=== PATIENT | male | born 1940 | race Caucasian/White ===

== ENCOUNTER → 2018-07-02 08:03 | Outpatient (CLI) | payer MEDICARE, OTHER, SELFPAY ==
--- NOTE | 2018-07-02 08:18 | PCM.CR.ITP ---
General Information - General Information Admitting Diagnosis: S/P TAVR - Education/Goals Barriers to Learning: None Individual Counseling: Initial Assessment: Abnormal Cholesterol Levels, Family History of Heart Disease (under 65 years) Cardiac Rehabilitation Goals: 1. Maintain the individual as the primary focus of care. 2. To improve the patient's quality of life. 3. Identification of cardiac risk factors and provide cardiac risk factor management. 4. Enhance the psychosocial status of the patient. 5. Reconditioning enough to allow the patient to resume customary activities. 6. Control symptoms of cardiac disease Scale for measuring improvement of personal goals: Enter appropriate number in Comments. 2 = Unchanged. 3 = Slightly Better. 4 = Moderate Improvement. 5 = Met my Goal Personal Goals: Initial Assessment: Improve energy level, Participate in home exercise program, Get back to work, or to resume activities faster, Improve muscle strength and endurance, Improve diet and eating habits (eat healthier), Control risk factors (learn risk factor modification) Exercise - Initial Assessment - Visit Date of Eval: 07/02/18 - Stages of Change Stages of Change:: Action - Physician Prescribed Exercise Modalities: Treadmill, Biodyne, Rower, Airdyne, NuStep, SciFit Frequency (days/week): 3x/week for 12 weeks [36 sessions] Intensity: Rating of perceived exertion (Sajan Scale) - Hypertension Do any of the following apply?: No - Intervention Home Exercise/Activity Goal:: Moderate Exercise 30 min/day x 5 days/wk - Education Goals:: Warm-up, RPE SAJAN Scale, S/S, Safe Exercise, Self-Monitoring - Exercise Program Goals Exercise Program Goals: Aerobic Activity >30 min Nutrition - Initial Assessment - Program Goals Nutrition Program Goals: LDL <70. Total Cholesterol <200. HDL >45. Triglycerides <150. HgbA1C <7%. BMI <25 - Visit Date of Assessment:: 07/02/18 - Stages of Change Stages of Change:: Action - Lipids Total Cholesterol (mg/dL) Goal = less than 200 mg/dL: 150 HDL Cholesterol (mg/dL) Goal = less than 45 mg/dL: 45 LDL Cholesterol (mg/dL) Goal = less than 70 mg/dL: 156 Triglycerides (mg/dL) Goal = less than 150 mg/dL: 120 - Diabetes Diabetes:: No - Weight Management Height: 5 ft 5 in Weight:: 154 lb Body Fat %:: 25.63 - Intervention Referral to dietitian:: Yes - Pt request Referral to Diabetic Clinic:: No Will attend diet classes:: Yes - Education Gave educational materials for:: Healthy eating Tobacco - Initial Assessment - Program Goals Tobacco Program Goals: Complete smoking cessation. Attend education classes. Improve Knowledge Test score - Stage of Change Stages of Change:: Maintenance - Learning Barriers Learning Barriers: Ready to Learn - Family Support Do you have family support?: Yes - Tobacco Use Tobacco Use: Non-smoker Do you use smokeless tobacco?: No - Intervention Smoking Cessation Referral:: No Individual Education/Counseling:: No Education Schedule Given:: Yes - Education Gave educational material for:: Tobacco triggers, Coronary artery disease, Risk factors, Sexuality, Medical compliance, Cardiac A&P, Angina signs & symptoms Psychosocial - Initial Assess - Target Goals Target Goals: Assess presence or absence of depression. Using a valid screening tool, maximizes coping skills. Positive support system - Stages of Change Stages of Change:: Action - Psychosocial Test Tool Used:: HANDS Depression Questionnaire Self-reported stress:: no Total Mood Screening Score:: 2 Self-Efficacy Score:: 9 - Intervention PS - Interventions: Yes Attend Stress Management Classes, Yes Uses Stress Management Skills, No Referral to Mental Health, No Referral to [facility] Case Management, No Referral to Physician - Education Gave educational materials for:: Coping techniques, Signs & symptoms of depression, Stress management, Relaxation techniques - Patient/Program Goal Preventative Medication(s):: Aspirin, OBIE inhibitor, Clopidogrel - Assistive Devices Assistive Devices:: None Fall Risk Assessed:: Yes Patient Health Questionnaire Initial Assessment 1. Little interest or pleasure in doing things: Not at all 2. Feeling down, depressed, or hopeless: Not at all 3. Trouble falling or staying asleep, or sleeping too much: Not at all 4. Feeling tired or having little energy: Several days 5. Poor appetite or overeating: Not at all 6. Feeling bad about yourself -- or that you are a failure or have let yourself or your family down: Not at all 7. Trouble concentrating on things, such as reading the newspaper or watching television: Not at all 8. Moving or speaking so slowly that other people could have noticed. Or the opposite - being so fidgety or restless that you have been moving around a lot more than usual: Several days 9. Thoughts that you would be better off , or of hurting yourself in some way: Not at all How difficult have these problems made it for you to do your work, take care of things at home, or get along with other people?: Somewhat difficult Total Score: 2 EDNA-Q SV Test - Statements CAD is a disease of the arteries in the heart: True Examples of risk factors for heart disease: True Angina is chest pain or discomfort: True The benefits of resistance training include: True Eating more meat and dairy products: I Don't Know Anti-platelet medications such as aspirin are important: True The only effective way to manage stress: False An exercise warm-up slowly increases heart rate: True Prepared, processed foods usually have high sodium: True Depression is common after a heart attack: I Don't Know The statin medications lower cholesterol: True To control blood pressure, lower the amount of sodium: True If someone gets chest discomfort during walking: False Transfats are partially hydrogenated vegetable oils: True Sleep apnea that is not treated increases the risk: I Don't Know To control cholesterol, one should become a vegetarian: False Someone knows if he/she is exercising at the right level: I Don't Know Diabetes cannot be prevented with exercise & health eating: False Stress is a large risk for heart attack: True A diet that can help lower blood pressure is rich in: True - Total Score Total Correct Responses: 15 Self-Efficacy Initial Assessment We would like to know how confident you are in doing certain activities. Please select your confidence level for:: Select your confidence level for the following using the scale 1-10 where 1 is not at all confident and 10 is totally confident. Your score is the average of all 6 responses. Fatigue: How confident are you that you can keep the fatigue caused by your disease from interfering with the things you want to do? Select Number: 10 Physical Discomfort or Pain: How confident are you that you can keep the physical discomfort or pain of your disease from interfering with the things you want to do? Select Number: 9 Emotional Distress: How confident are you that you can keep the emotional distress caused by your disease from interfering with the things you want to do? Select Number: 9 Other Symptoms or Health Problems: How confident are you that you can keep other symptoms or health problems from interfering with the things you want to do? Select Number: 10 Different Tasks and Activities: How confident are you that you can do the different tasks and activities needed to manage your health condition so as to reduce your need to see a doctor? Select Number: 10 Medication: How confident are you that you can do things other than just taking medication to reduce how much your illness affects your everyday life? Select Number: 10 Total Score:: 9 Nutrition Survey - Nutrition Survey Instructions Scoring Instructions: Scoring is as follows: Yes = 1 points. No = 0 point. Patient score that is >/=12 is considered to be at potential nutritional risk and could benefit from a referral to a registered dietitian. - Nutrition Survey Initial Have you lost >10 lbs over the past 2 months without trying?: No Are you following a special diet at home for diabetes, low fat, or low salt?: Yes Are you interested in meeting with a dietitian for help understanding your diet?: Yes Do you eat less than 3 meals a day?: Yes Do you eat fatty meats (bearden, sausage, ribs, etc), fried foods, desserts, large amounts of salad dressings, margarine, butter, or cheese most days?: No Do you have food allergies? [Enter types in comment field]: No Do you season food with salt, seasoning salt, or garlic salt?: No Do you used canned, boxed, frozen meals, or soups, seasoning packets?: No
--- NOTE | 2018-07-02 09:00 | CR.HP_ITS ---
CR - History & Physical - General Arrival date:: 07/02/18 Arrival time:: 08:51 Date of Referral:: 07/02/18 Date of CR Evaluation:: 07/02/18 Referring Physician: Dr. Qasim Ortiz Primary Diagnosis: TAVR - History of Present Cardiac Event Onset Date: Enter Onset Date of cardiac illnesses in Comment field below Current stable Angina Pectoris:: No Acute Myocardial Infarction within 12 months:: Yes - 2008 Coronary Artery Bypass Graft:: No Heart valve replacement or repair:: Yes PTCA or coronary stenting:: Yes - 2008, 2016 Heart or Heart-Lung Transplant:: No Heart Failure EF <35%:: No - Hx of CHF 2005 Type of Symptoms:: edema ankles, chest tightness, leg weakness. Interventions with present event:: echo, TAVR Were there any complications?: no - Medications Home Medications: Ambulatory Orders Medication Instructions Recorded Aspirin [Aspirin, Baby] 81 mg PO DAILY 11/24/13 Baclofen 10 mg PO 11/24/13 Cinnamon 11/24/13 Ketoconazole [Nizoral A-D] 11/24/13 Lisinopril [Zestril] 5 mg PO DAILY 11/24/13 Magnesium 400 mg PO BID 11/24/13 Multivit-Min/FA/Lycopene/Lut 1 each PO 11/24/13 [Centrum Silver Tablet] Niacin [Niacin ER] 500 mg PO 11/24/13 [place]-3 Fatty Acids/Fish Oil [Fish 1 each PO 11/24/13 Oil 1,000 mg Capsule] Ubidecarenone [Coenzyme Q10] 50 mg PO 11/24/13 Warfarin [Coumadin] 7.5 mg PO DAILY 11/24/13 Baclofen 10 mg PO 01/07/16 Cartilage/Collagen/Bor/Hyalur 1 each PO BID 07/02/18 [Joint Health Tablet] Ezetimibe [Zetia] 10 mg PO DAILY 07/02/18 Furosemide [Lasix] 20 mg PO DAILY 07/02/18 Metoprolol Tartrate [Lopressor 25 mg PO PRN PRN 07/02/18 (Beta Joseph)] Nitroglycerin [Nitrostat] 0.4 mg SL PRN PRN 07/02/18 Potassium 99 mg PO DAILY 07/02/18 - Allergies Allergies/Adverse Reactions: Allergies albuterol Adverse Reaction (Verified 01/07/16 09:04) Other caffeine Adverse Reaction (Verified 07/02/18 09:56) Other codeine Adverse Reaction (Verified 01/07/16 09:04) Other fenofibrate Adverse Reaction (Verified 07/02/18 09:56) Other glucosamine Adverse Reaction (Verified 07/02/18 09:56) Other guaifenesin [From Robitussin] Adverse Reaction (Verified 01/07/16 09:04) Other CARDIAC ARRHYTHMIA metoprolol [From Lopressor] Adverse Reaction (Verified 07/02/18 09:56) Abd cramps/diarrhea pitavastatin [From Livalo] Adverse Reaction (Verified 07/02/18 09:56) Other pravastatin Adverse Reaction (Verified 07/02/18 09:56) Other rosuvastatin [From Crestor] Adverse Reaction (Verified 07/02/18 09:56) Other simvastatin Adverse Reaction (Verified 07/02/18 09:56) Other verapamil Adverse Reaction (Verified 07/02/18 09:56) Abd cramps/diarrhea - Sleep Disorder Evaluation Hx of Sleep Apnea: No Do you snore loudly (louder than talking or can be heard through closed doors)?: No Do you often feel tired/ fatigued/ sleepy during daytime?: No Has anyone observed you stop breathing during sleep?: No History of Hypertension (for STOP score): No STOP Results: Negative Advanced Directives - Advanced Directives Power of [place]: Yes Living Will: Yes Advance Directives Information Provided: Yes Advance Directives on File: Yes DNR Order?:: Yes Additional Comments:: Will bring in living will for our records Past Medical History - Past Medical Illness Medical History: Past Medical History (Last Updated 07/02/18 @ 10:08 by Dante Davis RN) Aortic valve stenosis I35.0 Atrial fibrillation I48.91 CHF (congestive heart failure) I50.9 Hyperlipidemia E78.5 Prostatic hypertrophy N40.0 - Past Surgical History Surgical History: Past Surgical History (Last Updated 07/02/18 @ 10:09 by Dante Davis RN) H/O hernia repair Z98.890, Z87.19 History of appendectomy Z90.49 History of left knee replacement Z96.652 S/P TAVR (transcatheter aortic valve replacement) Z95.2 Status post ablation of atrial fibrillation Z98.890, Z86.79 Status post percutaneous transluminal angioplasty ([employer]) with stent placement Z95.820 Surgical History: angioplasty, appendectomy, arthroscopy, knee, herniorrhaphy, total knee arthroplasty - Family History Summary Family History: Family History (Last Updated 07/02/18 @ 10:10 by Dante Davis RN) Father Heart disease Social History - Smoking History Smoking Status: Never smoker - Alcohol Use Alcohol Usage: Yes - 1 glass wine daily - Substance Abuse Hx Substance Use: No - Occupation Occupation (List type of work in comments):: Retired - Hobbies, Recreation, Social Activities Hobbies: Other - patient transition specialist, cut trees, gardening, nicolas Social Environment - Status Marital Status: - Current Living Arrangements Living Environment:: Spouse - Children How many children do you have?: 3 Do any of your children live nearby?: Yes - Safety Do you feel safe in your surroundings?: Yes - Assistance Do you need any assistance at home?: no Review of Systems - Review of Systems Hints: Right click = Denies (Slash). Left click = Reports ([place]) Review of Present Symptoms: Reports: Appetite - Normal, Appetite - Special Diet - watches red meat, fat, Sleep - Normal. Denies: Shortness of Breath at Rest, Shortness of Breath with Exertion, PVD, Operative Discomfort, Angina, Wound Healing, Dizziness/Lightheadedness, Fatigue, Heart Arrhythmia/Irregularities, Sexual Changes - Pain Is Patient Pain Free?: Yes Risk Factor Assessment - Vital Signs Pulse Ox: 94 - Pulse Pulse Rate: 58 Pulse Rhythm: Regular - Hypertension Blood Pressure Sitting - Right Arm: 130/66 Blood Pressure Sitting - Left Arm: 130/64 - Blood Cholesterol/Lipids Total Cholesterol (mg/dL) Goal = less than 200 mg/dL: 150 HDL Cholesterol (mg/dL) Goal = less than 40 mg/dL: 45 LDL Cholesterol (mg/dL) Goal = less than 70 mg/dL: 156 Triglycerides (mg/dL) Goal = less than 150 mg/dL: 120 - Obesity Height: 5 ft 5 in Weight:: 154 lb Weight in Pounds: 154.0 lbs Weight Source: Standing Scale Body Mass Index (BMI): 25.6 Nutritional Referral for Obesity: Yes - Patient request due to Coumadin usage, high LDL and statin adverse reaction - Physical Inactivity Physical Inactivity: None - Risk Stratification Risk Guidelines: Lowest Risk: Risk Factor for Smoking, Risk Factor for Diabetes, Risk Factor for Obesity, Risk Factor for Hypertension, Risk Factor for Sedentary Lifestyle, Risk Factor for Depression, Moderate Risk: Risk Factor for Dyslipidemia - For Smoking Smoking Risk Guidelines: Smoking Low Risk: None or quit greater than 6 months ago. Smoking Moderate Risk: Smoker or quit 6 months or less ago. Smoking High Risk: Smoker - For Dyslipidemia Dyslipidemia Risk Guidelines: Low Risk: Moderate Risk: High Risk: 15-25% fat 25.1-29% fat >/= 30% fat. <7% sat fat 7-9% sat fat >9% sat fat. <150 mg chol 150-299 mg chol >/= 300 mg chol. LDL <100 LDL 100-129 LDL >/= 130. Chol/HDL ratio <5.0 Chol/HDL ratio 5.0-6.0 Chol/HDL ratio >6.0. Triglycerides <100 Triglycerides 100-149 Triglycerides >/= 150 - For Diabetes Mellitus Diabetes Risk Guidelines: Diabetes Low Risk: HgA1c <6.5% and/or FBG <120. Diabetes Moderate Risk: HgA1c 6.6-7.9% and/or FBG 120-180. Diabetes High Risk: HgA1c >/= 8% and/or FBG >180 - For Obesity/Overweight Obesity/Overweight Risk Guidelines: Obesity Low Risk: BMI <25.0. Obesity Moderate Risk: BMI 25-29.9. Obesity High Risk: BMI >/= 30.0 - For Hypertension Hypertension Risk Guidelines: Hypertension Low Risk: Systolic <120 and Diastolic <80. Hypertension Moderate Risk: Systolic 120-139 and Diastolic 80-89. Hypertension High Risk: Systolic >/= 140 and Diastolic >/= 90 - For Sedentary Lifestyle Sedentary Lifestyle Risk Guidelines: Sedentary Lifestyle Low Risk: >/= 1,500 kcal/week. Sedentary Lifestyle Moderate Risk: 700-1,499 kcal/week. Sedentary Lifestyle High Risk: < 700 kcal/week - For Depression Depression Risk Guidelines: Depression Low Risk: Not clinically depressed. Depression Moderate Risk: Mildly depressed. Depression High Risk: Clinically depressed - Family History Family History: Family History (Last Updated 07/02/18 @ 10:10 by Dante Davis RN) Father Heart disease Motivation - Motivation to Participate On a scale of 1 to 10, how prepared are you to commit to attending program?: 10
[2018-07-02 10:10] VITALS: BP 130/64; BP 130/66; PULSE 58; O2SAT 94; BMI 25.6
== END ==
PROVIDERS: Family Provider Family Medicine; PCP Family Medicine
DX: Z95.2 Presence of prosthetic heart valve (principal)

== ENCOUNTER 2018-07-17 11:30 | Outpatient (RCR) | payer MEDICARE, OTHER, SELFPAY ==
[2018-07-02 10:10] VITALS: BMI 25.6
== END 2018-07-19 23:59 ==
LOC: CR 11:30
PROVIDERS: Family Provider Family Medicine; PCP Family Medicine
DX: I35.0 Nonrheumatic aortic (valve) stenosis (principal); Z95.2 Presence of prosthetic heart valve
CPT/HCPCS: 93798

== ENCOUNTER 2018-08-17 11:30 | Outpatient (RCR) | payer MEDICARE, OTHER, SELFPAY ==
[2018-07-02 10:10] VITALS: BMI 25.6
--- NOTE | 2018-07-31 10:24 | CR.ITP_ITS ---
General Information - General Information Admitting Diagnosis: TAVR - Education/Goals Cardiac Rehabilitation Goals: 1. Maintain the individual as the primary focus of care. 2. To improve the patient's quality of life. 3. Identification of cardiac risk factors and provide cardiac risk factor management. 4. Enhance the psychosocial status of the patient. 5. Reconditioning enough to allow the patient to resume customary activities. 6. Control symptoms of cardiac disease Scale for measuring improvement of personal goals: Enter appropriate number in Comments. 2 = Unchanged. 3 = Slightly Better. 4 = Moderate Improvement. 5 = Met my Goal Exercise - 30-day Assessment - Visit Date of Eval: 07/31/18 Session #:: 11 - Stages of Change Stages of Change:: Action - Physician Prescribed Exercise Modalities: Treadmill, Airdyne, NuStep Frequency (days/week): 3 Duration (Minutes):: 30-45 Intensity: 60-80% age predicted maximum heart rate reserve METs - Progression: 0.5-1.0 MET, RPE 11-14 WEEK: 4.5 Target Heart Rate:: 120-133 Max HR 133 - Hypertension Resting Blood Pressure:: 140/60 Peak Exercise Blood Pressure:: 144/72 - Intervention Home Exercise/Activity Goal:: Sitting Time <3 hrs/day - Education Goals:: Warm-up, RPE ADITYA Scale, S/S, Safe Exercise, Self-Monitoring - Exercise Program Goals Exercise Program Goals: Aerobic Activity >30 min, B/P <130/80 Nutrition - 30-Day Assessment - Program Goals Nutrition Program Goals: LDL <70. Total Cholesterol <200. HDL >45. Triglycerides <150. HgbA1C <7%. BMI <25 - Visit Date of Eval: 07/31/18 - Stages of Change Stages of Change:: Action - Weight Management Weight:: 73.482 kg - Intervention Referral to dietitian:: No Referral to Diabetic Clinic:: No Will attend diet classes:: Yes - Education Attended class for:: Signs & symptoms of hypoglycemia, Signs & symptoms of hyperglycemia, Relate diabetes to coronary artery disease, Healthy eating Tobacco - Initial Assessment - Program Goals Tobacco Program Goals: Complete smoking cessation. Attend education classes. Improve Knowledge Test score - Learning Barriers Learning Barriers: Ready to Learn Tobacco - 30-Day Assessment - Program Goals Tobacco Program Goals: Complete smoking cessation. Attend education classes. Improve Knowledge Test score - Stage of Change Stages of Change:: Action - Learning Barriers Learning Barriers: Participates in education - Tobacco Use Tobacco Use: Non-smoker - Intervention Smoking Cessation Referral:: No Individual Education/Counseling:: No Education Schedule Given:: Yes - Education Attended class for:: Tobacco triggers, Coronary artery disease, Risk factors, Sexuality, Medical compliance, Cardiac A&P, Angina signs & symptoms Psychosocial - Initial Assess - Target Goals Target Goals: Assess presence or absence of depression. Using a valid screening tool, maximizes coping skills. Positive support system - Psychosocial Test Tool Used:: HANDS Depression Questionnaire - Assistive Devices Fall Risk Assessed:: Yes Psychosocial - 30-Day Assess - Target Goals Target Goals: Assess presence or absence of depression. Using a valid screening tool, maximizes coping skills. Positive support system - Stages of Change Stages of Change:: Action - Psychosocial Test Tool Used:: HANDS Depression Questionnaire - Intervention PS - Interventions: Yes Attend Stress Management Classes, Yes Uses Stress Management Skills, No Referral to Mental Health, No Referral to [facility] Case Management, No Referral to Physician - Education Attended classes for:: Coping techniques, Signs & symptoms of depression, Stress management, Relaxation techniques - Assistive Devices Assistive Devices:: None Fall Risk Assessed:: Yes Patient Health Questionnaire 30-Day Re-eval Assessment 1. Little interest or pleasure in doing things: Not at all 2. Feeling down, depressed, or hopeless: Not at all 3. Trouble falling or staying asleep, or sleeping too much: Not at all 4. Feeling tired or having little energy: Several days 5. Poor appetite or overeating: Not at all 6. Feeling bad about yourself -- or that you are a failure or have let yourself or your family down: Not at all 7. Trouble concentrating on things, such as reading the newspaper or watching television: Several days 8. Moving or speaking so slowly that other people could have noticed. Or the opposite - being so fidgety or restless that you have been moving around a lot more than usual: Not at all 9. Thoughts that you would be better off , or of hurting yourself in some way: Not at all How difficult have these problems made it for you to do your work, take care of things at home, or get along with other people?: Somewhat difficult Total Score: 2 Self-Efficacy 30-Day Re-eval Assessment We would like to know how confident you are in doing certain activities. Please select your confidence level for:: Select your confidence level for the following using the scale 1-10 where 1 is not at all confident and 10 is totally confident. Your score is the average of all 6 responses. Fatigue: How confident are you that you can keep the fatigue caused by your disease from interfering with the things you want to do? Select Number: 10 Physical Discomfort or Pain: How confident are you that you can keep the physical discomfort or pain of your disease from interfering with the things you want to do? Select Number: 9 Emotional Distress: How confident are you that you can keep the emotional distress caused by your disease from interfering with the things you want to do? Select Number: 9 Other Symptoms or Health Problems: How confident are you that you can keep other symptoms or health problems from interfering with the things you want to do? Select Number: 10 Different Tasks and Activities: How confident are you that you can do the different tasks and activities needed to manage your health condition so as to reduce your need to see a doctor? Select Number: 10 Medication: How confident are you that you can do things other than just taking medication to reduce how much your illness affects your everyday life? Select Number: 10 Total Score:: 9
[2018-07-31 10:25] VITALS: BP 140/60; BP 144/72
== END 2018-08-18 23:59 ==
LOC: CR 11:30
PROVIDERS: Family Provider Family Medicine; PCP Family Medicine
DX: Z95.2 Presence of prosthetic heart valve (principal)
CPT/HCPCS: 93798

== ENCOUNTER 2018-09-18 11:30 | Outpatient (RCR) | payer MEDICARE, OTHER, SELFPAY ==
[2018-07-02 10:10] VITALS: BMI 25.6
[2018-08-19 01:35] VITALS: BP 140/60; BP 144/72
--- NOTE | 2018-08-31 08:21 | CR.ITP_ITS ---
Exercise - 60-Day Assessment - Visit Date of Eval: 08/31/18 Session #:: 24 - Stages of Change Stages of Change:: Action - Physician Prescribed Exercise Modalities: Treadmill, Rower, Airdyne Frequency (days/week): 3 Duration (Minutes):: 30-45 Intensity: 60-80% age predicted maximum heart rate reserve METs - Progression: 0.5-1.0 MET, RPE 11-14 WEEK: 5.5 Target Heart Rate:: 120-133 - Hypertension Resting Blood Pressure:: 140/62 Peak Exercise Blood Pressure:: 152/70 Medication Changes:: No - Intervention Home Exercise/Activity Goal:: Moderate Exercise 30 min/day x 5 days/wk - Education Goals:: Warm-up, RPE ADITYA Scale, S/S, Safe Exercise, Self-Monitoring - Exercise Program Goals Exercise Program Goals: Aerobic Activity >30 min Exercise - 90-Day Assessment - Visit Date of Eval: 08/31/18 Session #:: 24 Nutrition - 60-Day Assessment - Program Goals Nutrition Program Goals: LDL <70. Total Cholesterol <200. HDL >45. Triglyc erides <150. HgbA1C <7%. BMI <25 - Visit Date of Eval: 08/31/18 - Stages of Change Stages of Change:: Action - Lipids Has the patient seen the dietitian?: No - Diabetes Diabetes:: No - Weight Management Weight:: 162 lb - Intervention Referral to dietitian:: No Referral to Diabetic Clinic:: No Will attend diet classes:: Yes - Education Attended class for:: Healthy eating Tobacco - Initial Assessment - Program Goals Tobacco Program Goals: Complete smoking cessation. Attend education classes. Improve Knowledge Test score - Learning Barriers Learning Barriers: Ready to Learn Tobacco - 60-Day Assessment - Program Goals Tobacco Program Goals: Complete smoking cessation. Attend education classes. I mprove Knowledge Test score - Stage of Change Stages of Change:: Action - Learning Barriers Learning Barriers: Participates in education - Family Support Do you have family support?: Yes - Tobacco Use Tobacco Use: Non-smoker Do you use smokeless tobacco?: No - Intervention Smoking Cessation Referral:: No Individual Education/Counseling:: No Education Schedule Given:: Yes - Education Attended class for:: Coronary artery disease, Risk factors, Sexuality, Medical compliance, Cardiac A&P, Angina signs & symptoms Psychosocial - Initial Assess - Target Goals Target Goals: Assess presence or absence of depression. Using a valid screening tool, maximizes coping skills. Positive support system - Psychosocial Test Tool Used:: HANDS Depression Questionnaire - Assistive Devices Fall Risk Assessed:: Yes Psychosocial - 60-Day Assess - Target Goals Target Goals: Assess presence or absence of depression. Using a valid screening tool, maximizes coping skills. Positive support system - Stages of Change Stages of Change:: Action - Psychosocial Test Tool Used:: HANDS Depression Questionnaire - Intervention PS - Interventions: Yes Attend Stress Management Classes, Yes Uses Stress Management Skills, No Referral to Mental Health, No Referral to [facility] Case Management, No Referral to Physician - Education Attended classes for:: Coping techniques, Signs & symptoms of depression, Stress management, Relaxation techniques - Patient/Program Goal Preventative Medication(s):: Aspirin, Clopidogrel, Beta ellen, Statin/lipid - Assistive Devices Assistive Devices:: None Fall Risk Assessed:: Yes Patient Health Questionnaire 60-Day Re-eval Assessment 1. Little interest or pleasure in doing things: Not at all 2. Feeling down, depressed, or hopeless: Not at all 3. Trouble falling or staying asleep, or sleeping too much: Not at all 4. Feeling tired or having little energy: Not at all 5. Poor appetite or overeating: Not at all 6. Feeling bad about yourself -- or that you are a failure or have let yourself or your family down: Not at all 7. Trouble concentrating on things, such as reading the newspaper or watching television: Several days 8. Moving or speaking so slowly that other people could have noticed. Or the opposite - being so fidgety or restless that you have been moving around a lot more than usual: Not at all 9. Thoughts that you would be better off , or of hurting yourself in some way: Not at all How difficult have these problems made it for you to do your work, take care of things at home, or get along with other people?: Not difficult at all Total Score: 1 Self-Efficacy 60-Day Re-eval Assessment We would like to know how confident you are in doing certain activities. Please select your confidence level for:: Select your confidence level for the following using the scale 1-10 where 1 is not at all confident and 10 is totally confident. Your score is the average of all 6 responses. Fatigue: How confident are you that you can keep the fatigue caused by your disease from interfering with the things you want to do? Select Number: 10 Physical Discomfort or Pain: How confident are you that you can keep the physical discomfort or pain of your disease from interfering with the things you want to do? Select Number: 10 Emotional Distress: How confident are you that you can keep the emotional distress caused by your disease from interfering with the things you want to do? Select Number: 10 Other Symptoms or Health Problems: How confident are you that you can keep other symptoms or health problems from interfering with the things you want to do? Select Number: 10 Different Tasks and Activities: How confident are you that you can do the different tasks and activities needed to manage your health condition so as to reduce your need to see a doctor? Select Number: 10 Medication: How confident are you that you can do things other than just taking medication to reduce how much your illness affects your everyday life? Select Number: 10 Total Score:: 10
[2018-08-31 08:23] VITALS: BP 140/62; BP 152/70
== END 2018-09-18 23:59 ==
LOC: CR 11:30
PROVIDERS: Family Provider Family Medicine; PCP Family Medicine
DX: I35.0 Nonrheumatic aortic (valve) stenosis (principal); Z95.2 Presence of prosthetic heart valve
CPT/HCPCS: 93798

== ENCOUNTER 2018-09-25 11:30 | Outpatient (RCR) | payer MEDICARE, OTHER, SELFPAY ==
[2018-07-02 10:10] VITALS: BMI 25.6
[2018-09-19 01:01] VITALS: BP 140/62; BP 152/70
== END 2018-10-18 23:59 ==
LOC: CR 11:30
PROVIDERS: Family Provider Family Medicine; PCP Family Medicine
DX: I35.0 Nonrheumatic aortic (valve) stenosis (principal); Z95.2 Presence of prosthetic heart valve
CPT/HCPCS: 93798

== ENCOUNTER 2019-01-13 03:34 | Emergency (ER) | payer MEDICARE, OTHER, SELFPAY ==
[2018-07-02 10:10] VITALS: BMI 25.6
[2019-01-13 03:35] VITALS: BP 165/81; PULSE 65; RESP 18; TEMP 36.5; O2SAT 96; BMI 26.6
--- NOTE | 2019-01-13 04:01 | ED.DCSUM_ITS ---
History of Present Illness Chief Complaint: Back Narrative: Patient is a 78-year-old male who presents with sciatic pain. Patient was working with his crossbow and had leaned over to [place] 3 days ago. He began to have some lower back pain at that time. He was seen at urgent care and prescribed Flexeril. Since that time he is also developed radiation down the right leg radiating from his lateral thigh towards his medial knee. No urinary retention fecal incontinence abdominal pain or fever. No history of prior back surgeries. He is not diabetic. Past Medical History - Allergies and Home Meds Allergies/Adverse Reactions: Allergies albuterol Adverse Reaction (Verified 01/13/19 03:38) Other caffeine Adverse Reaction (Verified 01/13/19 03:38) Other codeine Adverse Reaction (Verified 01/13/19 03:38) Other fenofibrate Adverse Reaction (Verified 01/13/19 03:38) Other glucosamine Adverse Reaction (Verified 01/13/19 03:38) Other guaifenesin [From Robitussin] Adverse Reaction (Verified 01/13/19 03:38) Other CARDIAC ARRHYTHMIA metoprolol [From Lopressor] Adverse Reaction (Verified 01/13/19 03:38) Abd cramps/diarrhea pitavastatin [From Livalo] Adverse Reaction (Verified 01/13/19 03:38) Other pravastatin Adverse Reaction (Verified 01/13/19 03:38) Other rosuvastatin [From Crestor] Adverse Reaction (Verified 01/13/19 03:38) Other simvastatin Adverse Reaction (Verified 01/13/19 03:38) Other verapamil Adverse Reaction (Verified 01/13/19 03:38) Abd cramps/diarrhea Primary Care Physician: Damon Evans MD [Primary Care Provider] - Past Medical History: - - Hypertension, atrial fibrillation, coronary artery disease Surgical History: angioplasty, appendectomy, arthroscopy, knee, herniorrhaphy, total knee arthroplasty Smoking Status: Never smoker Review of Systems All systems negative except as indicated General: Denies: Fever Cardiovascular: Denies: Chest pain Respiratory: Denies: Dyspnea Gastrointestinal: Denies: Abdominal pain Musculoskeletal: Reports: Back pain, Extremity Pain Physical Exam Vital Signs/Narrative: Vital Signs Temp Pulse Resp BP Pulse Ox 01/13/19 03:35 97.7 F L 65 18 165/81 H 96 Inital Vital Signs reviewed: Yes General: Well nourished Head: Normocephalic Eyes: EOMI ENT: Moist mucous membranes Neck: Supple Cardiovascular: Regular rate Respiratory: No distress Abdomen: Soft, Nontender, Nondistended Back: Nontender Extremities: Nontender, No edema, - - Brisk capillary refill, normal sensation to light touch, 5 out of 5 dorsiflexion, plantarflexion, extensor hallucis longus Skin: Normal color Neurological: Alert Psychological: Normal affect Diagnostic/Tx/Re-eval - Medical Decision Making Patient's presentation is consistent with lumbar radiculopathy. He has normal strength and sensation. He does not have signs or symptoms of serious process such as cauda equina syndrome or epidural abscess. He will be placed on a prednisone burst and given tramadol. He was advised to follow-up with his primary care physician. He was advised he may benefit from physical therapy. No indication for emergent MRI. All questions answered bedside and patient disc harged home. ED Disposition - Plan for ED Patient: Disposition: Home or Assisted Living Diagnosis: Lumbar radiculopathy, acute Instructions: BACK PAIN w/ SCIATICA Prescriptions: predniSONE tablet 60 mg PO DAILY #15 tab Prescription Printed traMADol [Ultram] 50 mg PO Q6H PRN 3 Days #12 tab PRN Reason: Pain Prescription Printed Referrals: Damon Evans MD [Primary Care Provider] -
[2019-01-13] MEDS: traMADol 50 MG Tablet PO (04:06)
== END 2019-01-13 04:09 | disposition home or self-care (01) ==
LOC: ED 04:07
PROVIDERS: Emergency Provider Emergency Medicine; Family Provider Family Medicine; PCP Family Medicine
DX: M54.16 Radiculopathy, lumbar region (principal); I25.10 Atherosclerotic heart disease of native coronary artery without angina pectoris; I48.91 Unspecified atrial fibrillation; I10 Essential (primary) hypertension; Z79.02 Long term (current) use of antithrombotics/antiplatelets; Z79.82 Long term (current) use of aspirin; Z79.899 Other long term (current) drug therapy
CPT/HCPCS: 99283

== ENCOUNTER 2019-02-22 19:21 | Emergency (ER) | payer MEDICARE, OTHER, SELFPAY ==
[2019-02-22 19:23] VITALS: BP 163/82; PULSE 66; PULSE 70; RESP 12; RESP 17; TEMP 37.4; O2SAT 95; BMI 26.4
--- NOTE | 2019-02-22 20:41 | ED.VIS.GEN ---
History of Present Illness Chief Complaint: Laceration Detail of Chief Complaint: Left index finger laceration Informant: Patient Onset: Today Current Severity: Mild Maximum Severity: Mild Narrative: Patient presents status post left index finger laceration. He was helping someone got a deer from deer hunting. He suffered a laceration to left index finger. He is unsure of his last tetanus update, but believes it is greater than 5 years ago. He is right-hand dominant. He denies paresthesias or weakness. Past Medical History - Allergies and Home Meds Allergies/Adverse Reactions: Allergies albuterol Adverse Reaction (Verified 02/22/19 19:22) Other caffeine Adverse Reaction (Verified 02/22/19 19:22) Other codeine Adverse Reaction (Verified 02/22/19:22) Other fenofibrate Adverse Reaction (Verified 02/22/19:22) Other glucosamine Adverse Reaction (Verified 02/22/19:22) Other guaifenesin [From Robitussin] Adverse Reaction (Verified 02/22/19:22) Other CARDIAC ARRHYTHMIA metoprolol [From Lopressor] Adverse Reaction (Verified 02/22/19 19:22) Abd cramps/diarrhea pitavastatin [From Livalo] Adverse Reaction (Verified 02/22/19 19:22) Other pravastatin Adverse Reaction (Verified 02/22/19 19:22) Other rosuvastatin [From Crestor] Adverse Reaction (Verified 02/22/19 19:22) Other simvastatin Adverse Reaction (Verified 02/22/19:22) Other verapamil Adverse Reaction (Verified 02/22/19:22) Abd cramps/diarrhea Primary Care Physician: Damon Evans MD [Primary Care Provider] - 7 Days for suture removal Prior records reviewed: Yes Past Medical History: - - Reviewed Surgical History: angioplasty, appendectomy, arthroscopy, knee, herniorrhaphy, total knee arthroplasty Lives: Spouse/ Significant Other Smoking Status: Never smoker Review of Systems General: Denies: Chills, Fever Eyes: Denies: Visual changes - bilaterally ENT: Denies: Bilateral ear pain Cardiovascular: Denies: Chest pain Respiratory: Denies: Dyspnea, Cough Gastrointestinal: Denies: Abdominal pain, Nausea, Vomiting, Diarrhea Musculoskeletal: Reports: Arthralgias, Extremity Pain. Denies: Swelling Skin: Reports: Wounds Neurological: Denies: Weakness, Parasthesia Physical Exam Vital Signs/Narrative: Vital Signs Temp Pulse Resp BP Pulse Ox 02/22/19 19:23 99.3 F H 70 12 163/82 H 95 Inital Vital Signs reviewed: Yes General: Well nourished, Well developed ENT: Moist mucous membranes Cardiovascular: Regular rate, Regular rhythm Respiratory: No distress, CTA bilaterally Abdomen: Soft, Nontender Extremities: - - 1.5 cm laceration over the distal phalanx of the left index finger. Bleeding is well controlled at this time. Patient has good range of motion at all joints with normal cap refill distally. He does have normal sensation over the distal finger. Neurological: Alert, Oriented x3, Normal Strength, Normal Sensation Psychological: Normal affect Diagnostic/Tx/Re-eval - Medical Decision Making Digital block is performed with 2 cc of lidocaine. Good anesthesia is obtained. Wound was cleansed and sutured with 4 simple interrupted sutures of 5-0 nylon. Dressing is applied. Tetanus update is given. Patient will follow-up in 1 week for suture removal. Procedures - Lacerations No standard instances Length: 0.59 in Depth: Skin Shape: Linear Number of Sutures/Jennifer: 4 - 4 simple entered sutures of 5-0 nylon. Suture Information: Ethilon, Simple, 5-0 ED Disposition - Plan for ED Patient: Disposition: Home or Assisted Living Diagnosis: Laceration Instructions: LACERATION, Hand Referrals: Damon Evans MD [Primary Care Provider] - 7 Days for suture removal
[2019-02-22] MEDS: Diphth,Pertuss(Acell),Tet Vac 0.5 ML Vial IM (21:06)
== END 2019-02-22 21:18 | disposition home or self-care (01) ==
PROVIDERS: Emergency Provider Emergency Medicine; Family Provider Family Medicine; PCP Family Medicine
DX: S61.211A Laceration without foreign body of left index finger without damage to nail, initial encounter (principal); Z23 Encounter for immunization; W26.0XXA Contact with knife, initial encounter; Y93.89 Activity, other specified; Y92.89 Other specified places as the place of occurrence of the external cause; Y99.8 Other external cause status
CPT/HCPCS: 12001; 90471; 90715; 99283

== ENCOUNTER 2020-02-02 12:30 | Outpatient (RCR) | payer MEDICARE, OTHER, SELFPAY ==
--- NOTE | 2019-11-03 13:45 | HP.PTEVAL_ITS ---
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 Date of Evaluation: 11/03/19 Physical Therapist: Andrew Durbin DPT - Visit Plan Frequency: 2-3x /Week Duration: 4-6 Weeks Plan: Start PROM of R shoulder increasing ROM as tolerated, careful with ER motion. May use ice for pain control. In 2 weeks add in AAROM as tolerted in supine positoning,. Progress as tolerated. - Subjective Pt. 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 Pt. reports having surgery on October 25, 2019. He arrives today without sling and reports he took him self out a few days ago. No new issues since. Pt. denies N/T. Pt. reports being consist ent with icing and rest. He is doing some pendulum exercises and elbow flexion exercises at home. Pt. is retired, but does like to nicolas with [employer] and like to garden and mow his lawn. Pt. is having some trouble sleeping, waking 3 times per night and sleeping in his chair. He reprots no pain at rest, but if he tries to move his arm he has increased pain. - Pain R shoulder Pain Intensity (Out of 10): 0 Pain Intensity Range: 0, 5 - Objective POSTURE: pt. has slight rounded shoulder and FH posture, able to impriove, but keeps R shoulder in guarded posture. PALPATION: Pt. has normal healing incision at R anterior shoulder. Pt. has no signs of infection. tender as expected at anterior shoulder. NEURO: normal throughout BUEs. Normal sensation. ROM: L shoulder- AROM- flexion 155deg, abd 150deg, functional ER C4, functional IR L4. R shoulder- PROM- flexion 130deg, abd 115deg, ER to netural (did not stress ER motion). Pt. has good R elbow ROM, full extension. MMT: LUE 5/5 throughout. RUE- wrist and component technician strngth normal no issues, elbow 4/5 flexion, 4/5 extension, did not test shoulder strength. - Goals Goal 1:: LTG: Pt. to be I with HEP. Goal Time Frame: 6-8 Weeks Goal 2:: STG: Pt. to sleep throughout the night without increase in symptoms. Goal Time Frame: 2-4 Weeks Goal 3:: LTG: Pt. to have increased PROM symmetrical to L side. Goal Time Frame: 2-4 Weeks Goal 4:: LTG: Pt. to AAROM of R shoulder symmetrical to L side. Goal Time Frame: 4-6 Weeks Goal 5:: LTG: Pt. to have increased R UE strength by 1/2 grade. Goal Time Frame: 8-12 Weeks - Rehabilitation Potential Physical Therapy Diagnosis: Pt. 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 Pt. has subsequent hypombility, weakness and increased pain. Pt. has overall minimal edema. Pt. would benefit from PT to increase ROM initially, progressing to strengthening once clinically ready. Rehabilitation Potential: Excellent - Anticipated Interventions Patient/Client Instruction: Educate patient on: Condition, Plan of Care, Risk Factors, Benefits of Fitness Program For the Purpose of:: To improve decision making, To facilitate caregiver knowledge, To improve self management, To prevent re-injury, To improve ability to perform tasks related to life management, To improve tolerance to ADL's Therapeutic Exercise to Include: Strength training, Power training, Body mechanics, Postural training, Flexibilty training, Passive ROM, Active ROM, Sca pular Strength/Stabilization For the Purpose of:: To decrease pain, To decrease swelling/inflammation, To increase ROM, To improve nutrient delivery to tissue, To increase oxygenation perfusion, To improve muscle performance and motor function, To improve ability to perform ADL's, To increase tolerance to activity/condition/position, To improve health of tissue, To decrease soft tissue restriction, To increase flexibility/ROM Manual Therapy Techniques to Include: Mobilization, Passive ROM, Soft tissue mobilization For the Purpose of:: To decrease pain, To decrease swelling/inflammation, To increase ROM, To improve nutrient delivery to tissue, To increase oxygenation perfusion Thank you for the opportunity to evaluate your patient. For Medicare and Medicare HMO plans, please review the plan of care and approve it. It will need to be FAXED BACK to us at [phone] for Medicare purposes. For Medicare only, by signing this I certify the plan of care. Please let me know if there are questions or concerns regarding this plan of care. Physician Signature: Date:
--- NOTE | 2019-12-03 10:27 | HP.PTREVAL ---
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 Please see the progress note below for an update on the physical therapy plan of care! Subjective: Pt. reports no pain currently. I still get have some soreness if I move the wrong way. Pt. reports beign HEP compliant including: leo Objective/Function: PROM: flexion 155dg, abd 160deg, ER at 90deg 70deg, IR at 90deg 40deg. Pt. has tightness at all end ranges of motions. AROM: seated- minimal motion in all directions. SUPINE: flexion 150deg, abd 130deg. pt. has overall improved ROM, but has limited AROM as expected. Pt. is to start doing more AAROM activities with wand and wall movements. Pt. overall pain is minimal. Pt. is doign well, bt is limited in his AROM due to weakness. Plan Plan: Progress more AAROM, AROM, Add in isometrics with rotational motions next visit. Progress light strengthening exerises to increase his AROM as tolerated. Extended POC x2 per week for 4 weeks. Goals Goal 1:: LTG: Pt. to be I with HEP. Goal Time Frame: 6-8 Weeks Goal Progress: Progressing Goal 2:: STG: Pt. to sleep throughout the night without increase in symptoms. Goal Time Frame: 2-4 Weeks Goal Progress: Goal Met Goal 3:: LTG: Pt. to have increased PROM symmetrical to L side. Goal Time Frame: 2-4 Weeks Goal Progress: Progressing Goal 4:: LTG: Pt. to AAROM of R shoulder symmetrical to L side. Goal Time Frame: 4-6 Weeks Goal Progress: Progressing Goal 5:: LTG: Pt. to have increased R UE strength by 1/2 grade. Goal Time Frame: 8-12 Weeks Goal Progress: Progressing Anticipated Interventions Patient/Client Instruction: Educate patient on: Condition, Plan of Care, Risk Factors, Benefits of Fitness Program For the Purpose of:: To improve decision making, To facilitate caregiver knowledge, To improve self management, To prevent re-injury, To improve ability to perform tasks related to life management, To improve tolerance to ADL's Therapeutic Exercise to Include: Strength training, Power training, Body mechanics, Postural training, Flexibilty training, Passive ROM, Active ROM, Scapular Strength/Stabilization For the Purpose of:: To decrease pain, To decrease swelling/inflammation, To increase ROM, To improve nutrient delivery to tissue, To increase oxygenation perfusion, To improve muscle performance and motor function, To improve ability to perform ADL's, To increase tolerance to activity/condition/position, To improve health of tissue, To decrease soft tissue restriction, To increase flexibility/ROM Manual Therapy Techniques to Include: Mobilization, Passive ROM, Soft tissue mobilization For the Purpose of:: To decrease pain, To decrease swelling/inflammation, To increase ROM, To improve nutrient delivery to tissue, To increase oxygenation perfusion Please do not hesitate to contact me at [phone] by phone or if you have questions or concerns regarding this new plan of care! Sincerely, CELINE ChristyT
--- NOTE | 2019-12-31 14:43 | HP.PTREVAL ---
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 Please see the progress note below for an update on the physical therapy plan of care! Subjective: Pt. reports no pain today. Pt. is still having wtih raising his arm over his head. He reports no pain currently. Pt. reports no N/T. He is HEP complaint with all exercises Objective/Function: PROM: Pt. has greater PROM and AAROm of R shoulder. He however still have limited AROm of R shoulder: flexion 65deg, abd 45deg, functional IR PSIS,functional ER limited during limited strength. Pt. is overall doing well, except his decreased functional strength. With a shorter lever arm he has improved mobility. I did talk to him about sharpey fibers and regeneration rates and how strength is a longer process. Pt. reports understanding. Plan Plan: Pt. to follow up with physician next week to determine if further PT is warranted. I would recommend continued strengthening fo this patient as he is still very weak with most R shoulder movements. Goals Goal 1:: LTG: Pt. to be I with HEP. Goal Time Frame: 6-8 Weeks Goal Progress: Goal Met Goal 2:: STG: Pt. to sleep throughout the night without increase in symptoms. Goal Time Frame: 2-4 Weeks Goal Progress: Goal Met Goal 3:: LTG: Pt. to have increased PROM symmetrical to L side. Goal Time Frame: 2-4 Weeks Goal Progress: Goal Met Goal 4:: LTG: Pt. to AAROM of R shoulder symmetrical to L side. Goal Time Frame: 4-6 Weeks Goal Progress: Goal Met Goal 5:: LTG: Pt. to have increased R UE strength by 1/2 grade. Goal Time Frame: 8-12 Weeks Goal Progress: Progressing Anticipated Interventions Patient/Client Instruction: Educate patient on: Condition, Plan of Care, Risk Factors, Benefits of Fitness Program For the Purpose of:: To improve decision making, To facilitate caregiver knowledge, To improve self management, To prevent re-injury, To improve ability to perform tasks related to life management, To improve tolerance to ADL's Therapeutic Exercise to Include: Strength training, Power training, Body mechanics, Postural training, Flexibilty training, Passive ROM, Active ROM, Scapular Strength/Stabilization For the Purpose of:: To decrease pain, To decrease swelling/inflammation, To increase ROM, To improve nutrient delivery to tissue, To increase oxygenation perfusion, To improve muscle performance and motor function, To improve ability to perform ADL's, To increase tolerance to activity/condition/position, To improve health of tissue, To decrease soft tissue restriction, To increase flexibility/ROM Manual Therapy Techniques to Include: Mobilization, Passive ROM, Soft tissue mobilization For the Purpose of:: To decrease pain, To decrease swelling/inflammation, To increase ROM, To improve nutrient delivery to tissue, To increase oxygenation perfusion Please do not hesitate to contact me at [phone] by phone or if you have questions or concerns regarding this new plan of care! Sincerely, CELINE ChristyT
--- NOTE | 2020-01-12 11:22 | HP.PTREVAL ---
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 Please see the progress note below for an update on the physical therapy plan of care! Subjective: Pt. went and saw his doctor who wishes him to continue with strengthening as he is still having difficulty with reaching his R arm over his head. No pain reported today. Pt. also reports he feels like he has been able to move is better over the last week. Objective/Function: Pt. did well today. He contiunes to have decreased overhead strength. Pt. has improved. He was able to achieve 100deg of shoulder flexion, 9d0eg of abd actively today. He continues to have great PROM, close to full without increase in symptoms. Greatest issue is with deltoid strength. Pt. tolerated all PT this date. Plan Plan: Pt. contniues to have decreased deltoid strength. Patient would benefit from PT to increase this strength allowing for greater functional use of his R UE. Goals Goal 1:: LTG: Pt. to be I with HEP. Goal Time Frame: 6-8 Weeks Goal Progress: Goal Met Goal 2:: STG: Pt. to sleep throughout the night without increase in symptoms. Goal Time Frame: 2-4 Weeks Goal Progress: Goal Met Goal 3:: LTG: Pt. to have increased PROM symmetrical to L side. Goal Time Frame: 2-4 Weeks Goal Progress: Goal Met Goal 4:: LTG: Pt. to AAROM of R shoulder symmetrical to L side. Goal Time Frame: 4-6 Weeks Goal Progress: Goal Met Goal 5:: LTG: Pt. to have increased R UE strength by 1/2 grade. Goal Time Frame: 8-12 Weeks Goal Progress: Progressing Anticipated Interventions Patient/Client Instruction: Educate patient on: Condition, Plan of Care, Risk Factors, Benefits of Fitness Program For the Purpose of:: To improve decision making, To facilitate caregiver knowledge, To improve self management, To prevent re-injury, To improve ability to perform tasks related to life management, To improve tolerance to ADL's Therapeutic Exercise to Include: Strength training, Power training, Body mechanics, Postural training, Flexibilty training, Passive ROM, Active ROM, Scapular Strength/Stabilization For the Purpose of:: To decrease pain, To decrease swelling/inflammation, To increase ROM, To improve nutrient delivery to tissue, To increase oxygenation perfusion, To improve muscle performance and motor function, To improve ability to perform ADL's, To increase tolerance to activity/condition/position, To improve health of tissue, To decrease soft tissue restriction, To increase flexibility/ROM Manual Therapy Techniques to Include: Mobilization, Passive ROM, Soft tissue mobilization For the Purpose of:: To decrease pain, To decrease swelling/inflammation, To increase ROM, To improve nutrient delivery to tissue, To increase oxygenation perfusion Please do not hesitate to contact me at [phone] by phone or if you have questions or concerns regarding this new plan of care! Sincerely, CELINE ChristyT
== END 2020-02-02 19:00 | disposition home or self-care (01) ==
LOC: PT 12:30
PROVIDERS: PCP Family Medicine
DX: M75.121 Complete rotator cuff tear or rupture of right shoulder, not specified as traumatic (principal)
CPT/HCPCS: 97014; 97110; 97140; 97161; 97164; 97530; G0283

== ENCOUNTER 2022-10-16 19:24 | Emergency (ER) | payer MEDICARE, OTHER, SELFPAY ==
[2022-10-16 19:26] VITALS: BP 90/62; PULSE 81; RESP 18; TEMP 37.2; O2SAT 98; BMI 27.1
[2022-10-16 20:01] VITALS: BP 119/91; PULSE 78; RESP 16; O2SAT 97
[2022-10-16 20:03] VITALS: O2SAT 95
[2022-10-16 20:12] LABS: Hematocrit 34.4 % (40-54); Hemoglobin 11.5 g/dL (13.0-16.5); Mean Corp Hgb Conc 33.4 g/dL (32-36); Mean Corpuscular Hgb 34.3 pg (27.0-32.0); Mean Corpuscular Volume 102.7 fL (80-94); Mean Platelet Vol. 9.6 fl (6.2-12.0); Platelet Count 165 K/mm3 (150-450); RBC Distribution Width CV 13.3 % (11.6-14.6); RBC Distribution Width SD 50.6 fl (35.1-43.9); Red Blood Count 3.35 M/mm3 (4.6-6.2)
--- NOTE | 2022-10-16 20:12 | RAD_ITS ---
STUDY: X-RAY CHEST REASON FOR EXAM: Male, 82 years old. Fever, dyspnea rales left lower base. Oblique views requested due to pt unable to move left arm/shoulder. shoulder replacement x3 days ago TECHNIQUE: Two view, frontal and lateral, with oblique projections. COMPARISON: None. FINDINGS: Suspect heart valve prosthesis. Alveolar opacities in both lung bases consistent with bibasilar atelectasis or pneumonia. There is no demonstrated pleural abnormality. Normal size heart. Normal mediastinum and leise. Normal visualized pulmonary arteries. Normal visualized aortic arch and descending thoracic aorta. Normal visualized thoracic spine. Status post bilateral shoulder reverse arthroplasty. There is no demonstrated abnormality of the visualized soft tissue structures of the upper abdomen. RAD/Chest PA and Lateral IMPRESSION: Bibasilar atelectasis or pneumonia. Electronically Signed: Kevin Vanessa MD at 20:38 EDT ,
[2022-10-16 20:27] LABS: Anion Gap 4 (5-15); BUN 26 mg/dL (7-18); BUN/Creat Ratio 19.5 RATIO (10-20); Calcium,Total 9.5 mg/dL (8.5-10.1); Chloride 110 mmol/L (98-107); Creatinine, Serum 1.33 mg/dL (0.70-1.30); EST Glomerular Filtration Rate 55 mL/min (>60); Est Glom Filt Rate - Afr Amer 66 mL/min (>60); Estimated Creatinine Clearance 37.98 ml/min; Glucose 122 mg/dL (74-106); Potassium 4.3 mmol/L (3.5-5.1); Sodium Level 139 mmol/L (136-145)
--- NOTE | 2022-10-16 20:28 | EX.ED.DYSGE1 ---
HPI History of Present Illness Chief Complaint: Fever Detail of Chief Complaint: Temperature of 100.8 Informant: patient, spouse/S.O. and family Onset/Context/Timing Onset: Today Context: Sudden Onset Timing: Continuous Quality: Slight cough, document temperature of 100.8. Location: Not applicable Current Severity: Mild Maximum Severity: Mild Worsened by: Patient is day 2 postop from total left arthroplasty Relieved by: Nothing Associated Symptoms Associated Symptoms: Slight nausea Narrative Narrative: Patient is a elderly male who underwent surgery at [facility]. He had surgery on his left shoulder. He presents because of temperature of 100.8. He denies shortness of breath even though he is tachypneic. Family acknowledges he has a slight cough. They believe he is short of breath as well even though he denies. He denies headache, visual, ocular auditory symptoms. He denies rhinorrhea, congestion postnasal drainage or sore throat. He denies abdominal pain, nausea, vomit or diarrhea. He denies dysuria, frequency, urgency or hematuria. He did not have a Segundo placed. He did have general anesthesia. He states he was out for approximately 1 hour. He he is not remove the dressing since he was told to leave it in place for 2 weeks. Prior similar symptoms: No Recent Illness/Hospitalization: Yes [facility] Medical History Aortic valve stenosis Atrial fibrillation CHF (congestive heart failure) Hyperlipidemia Prostatic hypertrophy Unstable reverse total shoulder arthroplasty Home Medications aspirin 81 mg chewable tablet 81 mg PO DAILY 11/24/13 [History Last Taken Unknown] ketoconazole 1 % shampoo (Nizoral A-D) 11/24/13 [History Last Taken Unknown] lisinopril 5 mg tablet 5 mg PO DAILY 11/24/13 [History Last Taken Unknown] magnesium 250 mg tablet 400 mg PO DAILY 11/24/13 [History Last Taken Unknown] zymkozgw-skh-pkdnj acid 0.4 mg-lycopene 300 mcg-lutein 250 mcg tablet (Centrum Silver) 1 ea PO DAILY 11/24/13 [History Last Taken Unknown] baclofen 10 mg tablet 10 mg PO DAILY 01/07/16 [History Last Taken Unknown] cartilage 40 mg-collagen II 10 mg-boron 5 mg-hyaluronate 3.3 mg tablet (XDx) 1 ea PO BID 07/02/18 [History Last Taken Unknown] ezetimibe 10 mg tablet 10 mg PO DAILY 07/02/18 [History Last Taken Unknown] metoprolol tartrate 25 mg tablet 25 mg PO PRN PRN heart rate 07/02/18 [History Last Taken Unknown] nitroglycerin 0.4 mg sublingual tablet (Nitrostat) 0.4 mg sublingual PRN PRN Cardiac/Chest Pain 07/02/18 [History Last Taken Unknown] apixaban 5 mg tablet 5 mg PO BID 01/13/19 [History Last Taken Unknown] clopidogrel 75 mg tablet 75 mg PO DAILY 01/13/19 [History Last Taken Unknown] cyclobenzaprine 10 mg tablet 10 mg PO TID PRN PRN Pain Score 1-01/2801/13/19 [History Last Taken Unknown] amoxicillin 875 mg-potassium clavulanate 125 mg tablet 875 mg (0.875 x 875-125 mg) PO Q12H #13 TABLETS 10/16/22 [Rx Last Taken Unknown] azithromycin 250 mg tablet 250 mg PO DAILY #4 TABLETS 10/16/22 [Rx Last Taken Unknown] Allergy/AdvReac Type Severity Reaction Status Date / Time albuterol AdvReac Other Verified 10/16/22 19:29 caffeine AdvReac Other Verified 10/16/22 19:29 codeine AdvReac Other Verified 10/16/22 19:29 fenofibrate AdvReac Other Verified 10/16/22 19:29 glucosamine AdvReac Other Verified 10/16/22 19:29 guaifenesin [From Robitussin] AdvReac Other Verified 10/16/22 19:29 metoprolol [From Lopressor] AdvReac Abd Verified 10/16/22 19:29 cramps/diarrhea pitavastatin [From Livalo] AdvReac Other Verified 10/16/22 19:29 pravastatin AdvReac Other Verified 10/16/22 19:29 rosuvastatin [From Crestor] AdvReac Other Verified 10/16/22 19:29 simvastatin AdvReac Other Verified 10/16/22 19:29 verapamil AdvReac Abd Verified 10/16/22 19:29 cramps/diarrhea Family History Father Heart disease Surgical History H/O hernia repair History of appendectomy History of left knee replacement S/P TAVR (transcatheter aortic valve replacement) Status post ablation of atrial fibrillation Status post percutaneous transluminal angioplasty ([employer]GER) with stent placement Social History (Updated 10/16/22 @ 20:[address] Sandor Marrero MD) household members: spouse Smoking Status: Never smoker substance use type: does not use ROS ROS ED Constitutional Constitutional ED: Reports fever(s) and sweats; Denies chills, subjective or weight loss Eyes Eyes: Denies blurry vision, change in vision or diplopia ENT ENT ED: Denies ear pain, rhinorrhea or sore throat Cardiovascular Cardiovascular: Denies chest pain, orthopnea, palpitations, paroxysmal nocturnal dyspnea or racing heartbeat Respiratory/Chest Respiratory/Chest: Denies cough, dyspnea, dyspnea on exertion, orthopnea or paroxysmal nocturnal dyspnea Gastrointestinal Gastrointestinal: Denies abdominal pain, diarrhea, nausea or vomiting Genitourinary Genitourinary ED: Denies dysuria, hematuria or urinary frequency Musculoskeletal Musculoskeletal: Denies arthralgias, back pain, myalgias or neck pain Integumentary Denies abscess, Abrasions or rash Neurologic Neurologic: Denies headache(s), paresthesias or weakness Endocrine Endocrinology: Denies cold intolerance or heat intolerance Hematologic/Lymphatic Hematologic/Lymphatic: Reports systems reviewed and no addt'l complaints, except as documented EXAM Physical Exam Const Vital Signs: 10/16/22 19:26 10/16/22 20:01 10/16/22 20:03 Temperature 99.0 F Temperature Source Temporal Pulse Rate 81 78 Respiratory Rate 18 16 Blood Pressure 90/62 119/91 H Blood Pressure Mean 71 100 Pulse Ox 98 97 95 Oxygen Delivery Method Room Air Nasal Cannula Nasal Cannula Oxygen Flow Rate (L/min) 2 3 Vital signs are unremarkable. Patient feels warmer than document temperature. He had a TA temperature taken. Repeat temperature was requested. Positive well nourished and well developed General Appearance ED: well developed and NAD; Negative for cyanotic, diaphoretic or pallor HEENT Reports dry mucous membranes HEENT Narrative: Head is atraumatic normocephalic. Ears normal. TMs normal. Nares patent with no discharge. Posterior pharynx out erythema or exudate. Uvula is midline. Mouth ED: Yes dry mucous membranes Mouth: dry mucous membranes Eyes PERRL and EOMs intact bilaterally General Eye ED: Negative for pale conjunctiva or scleral icterus Neck no lymphadenopathy, supple and no JVD Chest Wall palpation of chest normal Chest Narrative: There is bruising from his surgery otherwise markable. Resp normal respiratory effort and No clear to auscultation bilaterally Resp Narrative: Rales left lower lung posteriorly. Equivocal egophony left lower lobe posteriorly Cardio regular rate, regular rhythm, S1 normal heart sound, S2 normal heart sound and no murmurs GI normal to inspection, nondistended, normoactive bowel sounds, non-tender, non-distended and no masses; Negative for hepatosplenomegaly Palpation: soft Back/Spine no CVA tenderness Thoracic Spine / Upper Back: Negative for thoracic spinal tenderness Lumbar Spine / Lower Back: Negative for lumbar spinal tenderness Extremity Extremity Narrative: Dressing was partially taken down. Incision is without evidence of infection i.e. erythema, warmth, induration or drainage. General Extremety ED: Negative for edema or tenderness General Extremity: Negative for edema Neuro oriented x3 and no sensory deficits noted Sensorium / Orientation: alert Motor Exam: strength 5/5 throughout Psych mental status grossly normal Skin no rashes or lesions noted, no wounds and skin turgor normal General Skin Exam: Negative for jaundice or pallor MDM MDM MDM Narrative Medical decision making narrative: Patient presents with postop fever. Most likely this is due to surgery and atelectasis. Will obtain chest x-ray to evaluate for pneumonia, CBC to assess white count differential, BMP to assess renal function. Since he did not have a Segundo has no urinary symptoms UA was not obtained. Patient's port score is 90. He is a risk class III with a 0.9-2 point percent mortality rate. Outpatient or inpatient therapy depending on clinical judgment. Based on clinical judgment patient can be treated as an outpatient. Curb 65 score is 2., Which is moderate risk group with 6.8% 30-day mortality. Recommendation is consider inpatient or outpatient with close follow-up. Lab Data Attestation: I reviewed the patient's lab results. Lab results narrative: CBC is unremarkable. Labs: Laboratory Results - last 24 hr 10/16/22 20:05 WBC 11.0 RBC 3.35 L Hgb 11.5 L Hct 34.4 L MCV 102.7 H MCH 34.3 H MCHC 33.4 RDW Std Deviation 50.6 H RDW Coeff of Kina 13.3 Plt Count 165 MPV 9.6 Sodium 139 Potassium 4.3 Chloride 110 H Carbon Dioxide 25.0 Anion Gap 4 L BUN 26 H Creatinine 1.33 H Estim Creat Clear Calc 37.98 Est GFR (MDRD) Af Amer 66 Est GFR (MDRD) Non-Af 55 L BUN/Creatinine Ratio 19.5 Glucose 122 H Lactic Acid 1.2 Calcium 9.5 Radiography Chest X-Ray - ED: 2 View and Read by ED Physician (X-ray limited the fact the patient cannot move his left upper extremity because of recent surgery. There are some increased parenchymal changes noted right and left base. There is no obvious infiltrate or effusion. There is no pneumothorax. Cardiac silhouette and size unremarkable. Patient's huffman) Diagnostic Testing: Clinical Impression(s) from Imaging Studies Chest X-Ray 10/16/22 20:12 IMPRESSION: Bibasilar atelectasis or pneumonia. Electronically Signed: Kevin Vanessa MD at 20:38 EDT , Rhythm Strip Rhythm Strip: Sinus Rhythm Rate: 78 Treatment and Re-Evaluation :: Patient, spouse and family were told of results and treatment options. Patient be discharged home with prescription for Augmentin and azithromycin. He received his first dose of each in the emergency department. Discharge Plan Triage Chief Complaint: Fever ED Provider: Sandor Marrero Dx/Rx/DC Orders Clinical Impression: Anticoagulant long-term use, Community acquired pneumonia, Elevated serum creatinine, History of hypertension, Postop pneumonia Prescriptions: New azithromycin [azithromycin] 250 mg tablet 250 mg PO DAILY Qty: 4 0RF amoxicillin-pot clavulanate [amoxicillin-pot clavulanate] 875-125 mg tablet 875 mg PO Q12H Qty: 13 0RF No Action aspirin 81 MG tablet,chewable 81 mg PO DAILY magnesium 250 MG tablet 400 mg PO DAILY lisinopril 5 MG tablet 5 mg PO DAILY ketoconazole [Nizoral A-D] 200 ML shampoo zxtnwvwa-bmb-WN-lycopen-lutein [Centrum Silver] 1 EACH tablet 1 ea PO DAILY baclofen 10 MG tablet 10 mg PO DAILY nitroglycerin [Nitrostat] 0.4 MG tablet, sublingual 0.4 mg sublingual PRN PRN (Reason: Cardiac/Chest Pain) ezetimibe 10 MG tablet 10 mg PO DAILY metoprolol tartrate 25 MG tablet 25 mg PO PRN PRN (Reason: heart rate) Rx Instructions: UP TO 4XS PER DAY WHILE IN A FLUTTER [id number]-hyalur [Joint Health] 1 EACH tablet 1 ea PO BID cyclobenzaprine 10 MG tablet 10 mg PO TID PRN PRN (Reason: Pain Score 1-10/10) clopidogrel 75 MG tablet 75 mg PO DAILY apixaban 5 MG tablet 5 mg PO BID Primary Care Provider: Damon Evans Referrals: Damon Evans MD [Primary Care Provider] - 2 Days Activity Restrictions/Additional Instructions: If you have any trouble breathing, persistent fever for more than [address] Evans's office for urgent follow-up; otherwise, please return to the emergency department Disposition Disposition: Home, Self Care
[2022-10-16 20:37] LABS: Lactic Acid 1.2 mmol/L (0.4-1.9)
[2022-10-16] MEDS: Amox/Clavulanate 875 MG Tablet PO (21:39)
[2022-10-16] MEDS: Azithromycin 250 MG Tablet 500 MG PO (21:39)
--- NOTE | 2022-10-16 21:39 | EX.ED.DYSGE1 ---
HPI History of Present Illness Chief Complaint: Fever [facility] Medical History Aortic valve stenosis Atrial fibrillation CHF (congestive heart failure) Hyperlipidemia Prostatic hypertrophy Unstable reverse total shoulder arthroplasty Home Medications aspirin 81 mg chewable tablet 81 mg PO DAILY 11/24/13 [History Last Taken Unknown] ketoconazole 1 % shampoo (Nizoral A-D) 11/24/13 [History Last Taken Unknown] lisinopril 5 mg tablet 5 mg PO DAILY 11/24/13 [History Last Taken Unknown] magnesium 250 mg tablet 400 mg PO DAILY 11/24/13 [History Last Taken Unknown] cyxglvjc-tlc-rgyln acid 0.4 mg-lycopene 300 mcg-lutein 250 mcg tablet (Centrum Silver) 1 ea PO DAILY 11/24/13 [History Last Taken Unknown] baclofen 10 mg tablet 10 mg PO DAILY 01/07/16 [History Last Taken Unknown] cartilage 40 mg-collagen II 10 mg-boron 5 mg-hyaluronate 3.3 mg tablet ([employer]) 1 ea PO BID 07/02/18 [History Last Taken Unknown] ezetimibe 10 mg tablet 10 mg PO DAILY 07/02/18 [History Last Taken Unknown] metoprolol tartrate 25 mg tablet 25 mg PO PRN PRN heart rate 07/02/18 [History Last Taken Unknown] nitroglycerin 0.4 mg sublingual tablet (Nitrostat) 0.4 mg sublingual PRN PRN Cardiac/Chest Pain 07/02/18 [History Last Taken Unknown] apixaban 5 mg tablet 5 mg PO BID 01/13/19 [History Last Taken Unknown] clopidogrel 75 mg tablet 75 mg PO DAILY 01/13/19 [History Last Taken Unknown] cyclobenzaprine 10 mg tablet 10 mg PO TID PRN PRN Pain Score 1-01/2801/13/19 [History Last Taken Unknown] amoxicillin 875 mg-potassium clavulanate 125 mg tablet 875 mg (0.875 x 875-125 mg) PO Q12H #13 TABLETS 10/16/22 [Rx Last Taken Unknown] azithromycin 250 mg tablet 250 mg PO DAILY #4 TABLETS 10/16/22 [Rx Last Taken Unknown] Allergy/AdvReac Type Severity Reaction Status Date / Time albuterol AdvReac Other Verified 10/16/22 19:29 caffeine AdvReac Other Verified 10/16/22 19:29 codeine AdvReac Other Verified 10/16/22 19:29 fenofibrate AdvReac Other Verified 10/16/22 19:29 glucosamine AdvReac Other Verified 10/16/22 19:29 guaifenesin [From Robitussin] AdvReac Other Verified 10/16/22 19:29 metoprolol [From Lopressor] AdvReac Abd Verified 10/16/22 19:29 cramps/diarrhea pitavastatin [From Livalo] AdvReac Other Verified 10/16/22 19:29 pravastatin AdvReac Other Verified 10/16/22 19:29 rosuvastatin [From Crestor] AdvReac Other Verified 10/16/22 19:29 simvastatin AdvReac Other Verified 10/16/22 19:29 verapamil AdvReac Abd Verified 10/16/22 19:29 cramps/diarrhea Family History Father Heart disease Surgical History H/O hernia repair History of appendectomy History of left knee replacement S/P TAVR (transcatheter aortic valve replacement) Status post ablation of atrial fibrillation Status post percutaneous transluminal angioplasty ([employer]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 Sandor Marrero MD) household members: spouse Smoking Status: Never smoker substance use type: does not use EXAM Physical Exam Const Vital Signs: 10/16/22 19:26 10/16/22 20:01 10/16/22 20:03 Temperature 99.0 F Temperature Source Temporal Pulse Rate 81 78 Respiratory Rate 18 16 Blood Pressure 90/62 119/91 H Blood Pressure Mean 71 100 Pulse Ox 98 97 95 Oxygen Delivery Method Room Air Nasal Cannula Nasal Cannula Oxygen Flow Rate (L/min) 2 3 MDM MDM Lab Data Labs: Laboratory Results - last 24 hr 10/16/22 20:05 WBC 11.0 RBC 3.35 L Hgb 11.5 L Hct 34.4 L MCV 102.7 H MCH 34.3 H MCHC 33.4 RDW Std Deviation 50.6 H RDW Coeff of Kina 13.3 Plt Count 165 MPV 9.6 Sodium 139 Potassium 4.3 Chloride 110 H Carbon Dioxide 25.0 Anion Gap 4 L BUN 26 H Creatinine 1.33 H Estim Creat Clear Calc 37.98 Est GFR (MDRD) Af Amer 66 Est GFR (MDRD) Non-Af 55 L BUN/Creatinine Ratio 19.5 Glucose 122 H Lactic Acid 1.2 Calcium 9.5 Radiography Diagnostic Testing: Clinical Impression(s) from Imaging Studies Chest X-Ray 10/16/22 20:12 IMPRESSION: Bibasilar atelectasis or pneumonia. Electronically Signed: Kevin Vanessa MD at 20:38 EDT , Rhythm Strip Rhythm Strip: Sinus Rhythm Rate: 78 Discharge Plan Triage Chief Complaint: Fever ED Provider: Sandor Marrero Dx/Rx/DC Orders Clinical Impression: Anticoagulant long-term use, Community acquired pneumonia, Elevated serum creatinine, History of hypertension, Postop pneumonia Prescriptions: New azithromycin [azithromycin] 250 mg tablet 250 mg PO DAILY Qty: 4 0RF amoxicillin-pot clavulanate [amoxicillin-pot clavulanate] 875-125 mg tablet 875 mg PO Q12H Qty: 13 0RF No Action aspirin 81 MG tablet,chewable 81 mg PO DAILY magnesium 250 MG tablet 400 mg PO DAILY lisinopril 5 MG tablet 5 mg PO DAILY ketoconazole [Nizoral A-D] 200 ML shampoo ildjjykq-nwg-BB-lycopen-lutein [Centrum Silver] 1 EACH tablet 1 ea PO DAILY baclofen 10 MG tablet 10 mg PO DAILY nitroglycerin [Nitrostat] 0.4 MG tablet, sublingual 0.4 mg sublingual PRN PRN (Reason: Cardiac/Chest Pain) ezetimibe 10 MG tablet 10 mg PO DAILY metoprolol tartrate 25 MG tablet 25 mg PO PRN PRN (Reason: heart rate) Rx Instructions: UP TO 4XS PER DAY WHILE IN A FLUTTER shhxzravc-rcqrfrnq-qso-hyalur [Joint Health] 1 EACH tablet 1 ea PO BID cyclobenzaprine 10 MG tablet 10 mg PO TID PRN PRN (Reason: Pain Score 1-10/10) clopidogrel 75 MG tablet 75 mg PO DAILY apixaban 5 MG tablet 5 mg PO BID Primary Care Provider: Damon Evans Referrals: Damon Evans MD [Primary Care Provider] - 2 Days Activity Restrictions/Additional Instructions: If you have any trouble breathing, persistent fever for more than [address] Evans's office for urgent follow-up; otherwise, please return to the emergency department Disposition Disposition: Home, Self Care
[2022-10-16 21:50] VITALS: PULSE 80; RESP 22
== END 2022-10-16 21:51 | disposition home or self-care (01) ==
PROVIDERS: Emergency Provider Emergency Medicine; PCP Family Medicine; Visit Provider Emergency Medicine
DX: J18.9 Pneumonia, unspecified organism (principal); I50.9 Heart failure, unspecified; I11.0 Hypertensive heart disease with heart failure; I48.91 Unspecified atrial fibrillation; R50.82 Postprocedural fever; Z79.01 Long term (current) use of anticoagulants; E78.5 Hyperlipidemia, unspecified
CPT/HCPCS: 71046; 80048; 83605; 85027; 99283